=== PATIENT | male | born 1970 | race Caucasian/White ===

== ENCOUNTER 2017-06-25 12:29 | Emergency (ER) | payer OTHER ==
[~2017-06-25] VITALS: Ht 167.6 cm; Wt 87.0 kg
[2017-06-25] MEDS ORDERED: SODIUM CHLORIDE 0.9% 1,000 ML IV ONE (12:37)
[2017-06-25] MEDS ORDERED: SODIUM CHLORIDE 0.9% 1,000ML IVBOLUS ONE (13:00)
[2017-06-25] MEDS ORDERED: ONDANSETRON 2MG/ML, 2ML IVPush ONE (13:00)
[2017-06-25] MEDS ORDERED: FAMOTIDINE 20 MG/2 ML IVP ONE (13:00)
[2017-06-25] MEDS ORDERED: morphine SULFATE 10 MG/ML, 1ML ONE ×3 (13:17→16:00)
[2017-06-25] MEDS ORDERED: FAMOTIDINE 20 MG/2 ML ONE (13:17)
[2017-06-25] MEDS ORDERED: ONDANSETRON 2MG/ML, 2ML ONE (13:17)
[2017-06-25] MEDS: MORPHINE SULFATE 4 MG/ML, 1ML IVPush PRN ×2 (13:23→14:15)
[2017-06-25 13:44] LABS: HEMATOCRIT 44.3 % (39.2-51.8); HEMOGLOBIN 15.1 g/dL (13.7-18.0); WHITE BLOOD COUNT 17.6 x10^3/uL (3.4-10)
[2017-06-25 13:56] LABS: ASPARTATE AMINO TRANSFERASE 47 U/L (15-37); BLOOD UREA NITROGEN 14 mg/dL (7-18)
[2017-06-25] MEDS ORDERED: OMNIPAQUE 350 MG/ML, 100ML BOTTLE ONE (14:36)
[2017-06-25 15:35] LABS: DAU SCREEN DISCLAIMER
[2017-06-25] MEDS ORDERED: MORPHINE SULFATE 4 MG/ML, 1ML IVPush ONE ×2 (16:00→19:00)
[2017-06-25 18:21] VITALS: BP 140/99
== END 2017-06-25 19:07 | disposition short-term general hospital (02) ==
LOC: ED 16:14
DX: S27.0XXA Traumatic pneumothorax, initial encounter (principal); S22.42XA Multiple fractures of ribs, left side, initial encounter for closed fracture; R09.02 Hypoxemia; V29.9XXA Motorcycle rider (driver) (passenger) injured in unspecified traffic accident, initial encounter; Y93.89 Activity, other specified; Y92.89 Other specified places as the place of occurrence of the external cause; Y99.8 Other external cause status
CPT/HCPCS: 36415; 74022; 74177; 80053; 80307; 81003; 83690; 85025; 85610; 93005; 96361; 96374; 96375; 96376; 99285; J2405; J7030; Q9967; G0479; S0028